=== PATIENT | male | born 1950 | race Caucasian/White ===

== ENCOUNTER 2021-02-11 21:32 | Emergency (ER) | payer MEDICARE, OTHER, SELFPAY ==
[2021-02-11 21:39] VITALS: BP 163/85; PULSE 72; RESP 18; TEMP 36.4; O2SAT 97; BMI 26.6
[2021-02-11 21:52] VITALS: BP 129/91; PULSE 69; RESP 17; O2SAT 98
--- NOTE | 2021-02-11 21:56 | CTR_ITS ---
PROCEDURE INFORMATION: Exam: CT Head Without Contrast Exam date and time: 02/11/2021 9:56 PM Age: 71 years old Clinical indication: Pain; Weakness, facial; Headache; Patient HX: BULLOCK with RT facial droop; Additional info: Rule out brain injuries TECHNIQUE: Imaging protocol: Computed tomography of the head without contrast. Radiation optimization: All CT scans at this facility use at least one of these dose optimization techniques: automated exposure control; mA and/or kV adjustment per patient size (includes targeted exams where dose is matched to clinical indication); or iterative reconstruction. COMPARISON: CT head wo con* [id number] 11/22/2016 12:03 PM RADIATION DOSE METRICS: Total DLP (mGy-cm): 787.26 FINDINGS: Brain: The brain is unremarkable. There is no mass effect or significant white matter disease. There is no acute intracranial hemorrhage. Cerebral ventricles: There is no significant ventricular dilation. The basal cisterns are unremarkable. Paranasal sinuses: The paranasal sinuses are clear. Mastoid air cells: The mastoid air cells are clear. Bones/joints: The calvarium is intact. Soft tissues: The visible extracranial soft tissues are unremarkable. CT/CT head wo con* [id number] IMPRESSION: No acute intracranial abnormality. Radiation Dose CTDIVOL = (mGy): DLP = 787.26 (mGy-cm)
[2021-02-11 22:09] LABS: Basophils % 0.3 %; Eosinophils # 0.1 10^3/uL (0.0-0.8); Eosinophils % 0.8 %; Hematocrit 46.6 % (42.0-52.0); Hemoglobin 15.5 g/dL (11.7-16.6); Lymphocytes # 1.1 10^3/uL (0.8-4.8); Lymphocytes % 12.2 %; Mean Corpuscular HGB Conc 33.3 g/dL (30.0-36.0); Mean Corpuscular Hemoglobin 28.9 pg (28.0-34.0); Mean Corpuscular Volume 86.9 fL (80-94); Mean Platelet Volume 10.2 fL (7.4-10.4); Monocytes # 0.6 10^3/uL (0.2-0.9); Monocytes % 6.3 %; Neutrophils # 7.21 10^3/uL (1.8-7.7); Neutrophils % 80.2 %; Nucleated Red Blood Cells % 0 %; Platelet Count 268 10^3/cmm (130-400); Red Blood Count 5.36 10^6/uL (4.1-5.3); Red Cell Distribution Width 12.9 % (12.1-15.1)
--- NOTE | 2021-02-11 22:11 | CTR_ITS ---
PROCEDURE INFORMATION: Exam: CT Angiography Head With Contrast, Arteriography Exam date and time: 02/11/2021 10:11 PM Age: 71 years old Clinical indication: Dizziness and giddiness; Patient HX: Right sided facial droop, dizzy, blurred vision. HX of sosa's palsy x 2 years ago. ; Additional info: Rule out dissection TECHNIQUE: Imaging protocol: Computed tomography angiography of the head with contrast. Exam focused on the arteries. 3D rendering (Not supervised by radiologist): MIP and/or 3D reconstructed images were created by the technologist. Radiation optimization: All CT scans at this facility use at least one of these dose optimization techniques: automated exposure control; mA and/or kV adjustment per patient size (includes targeted exams where dose is matched to clinical indication); or iterative reconstruction. Contrast material: OMNI 350; Contrast volume: 95 ml; Contrast route: INTRAVENOUS (IV); COMPARISON: CT head wo con* [id number] 02/11/2021 10:07 PM RADIATION DOSE METRICS: Total DLP (mGy-cm): 2237.65 FINDINGS: ANTERIOR CIRCULATION: Right internal carotid artery: Unremarkable. Intracranial segment is patent with no significant stenosis. No aneurysm. Right middle cerebral artery: Unremarkable. No occlusion or significant stenosis. No aneurysm. Right anterior cerebral artery: Unremarkable. No occlusion or significant stenosis. No aneurysm. Left internal carotid artery: Unremarkable. Intracranial segment is patent with no significant stenosis. No aneurysm. Left middle cerebral artery: Unremarkable. No occlusion or significant stenosis. No aneurysm. Left anterior cerebral artery: Unremarkable. No occlusion or significant stenosis. No aneurysm. POSTERIOR CIRCULATION: Right vertebral artery: Unremarkable. No occlusion or significant stenosis. No aneurysm. Left vertebral artery: Unremarkable. No occlusion or significant stenosis. No aneurysm. Basilar artery: Unremarkable. No occlusion or significant stenosis. No aneurysm. Right posterior cerebral artery: Unremarkable. No occlusion or significant stenosis. No aneurysm. Left posterior cerebral artery: Unremarkable. No occlusion or significant stenosis. No aneurysm. Brain: No definite mass, mass effect, or midline shift. Cerebral ventricles: No ventriculomegaly. Bones/joints: Unremarkable. No acute fracture. Soft tissues: Unremarkable. IMPRESSION: No arterial stenosis, occlusion or aneurysm. PROCEDURE INFORMATION: Exam: CT Angiography Neck With Contrast Exam date and time: 02/11/2021 10:11 PM Age: 71 years old Clinical indication: Dizziness and giddiness; Patient HX: Right sided facial droop, dizzy, blurred vision. HX of sosa's palsy x 2 years ago. ; Additional info: Rule out dissection TECHNIQUE: Imaging protocol: Computed tomography angiography of the neck with contrast. 3D rendering (Not supervised by radiologist): MIP and/or 3D reconstructed images were created by the technologist. Radiation optimization: All CT scans at this facility use at least one of these dose optimization techniques: automated exposure control; mA and/or kV adjustment per patient size (includes targeted exams where dose is matched to clinical indication); or iterative reconstruction. Contrast material: OMNI 350; Contrast volume: 95 ml; Contrast route: INTRAVENOUS (IV); COMPARISON: CT head wo con* [id number] 02/11/2021 10:07 PM RADIATION DOSE METRICS: Total DLP (mGy-cm): 2237.63 FINDINGS: Right common carotid artery: No stenosis. No dissection or occlusion. Right internal carotid artery: There is mild atherosclerotic disease at the origin of the right internal carotid artery with less than 50% stenosis. Right external carotid artery: No occlusion or stenosis of the origin. Left common carotid artery: No stenosis. No dissection or occlusion. Left internal carotid artery: No stenosis of the extracranial segment. No dissection or occlusion. Left external carotid artery: No occlusion or stenosis of the origin. Right vertebral artery: No stenosis. No dissection or occlusion. Left vertebral artery: No stenosis. No dissection or occlusion. Soft tissues: Soft tissues in the neck and thoracic inlet are unremarkable. Bones/joints: No acute fracture. Multilevel disc findings: there is mild degenerative disc disease in the cervical spine. CT/CT angio headneck* [id number] IMPRESSION: No significant arterial stenosis. No occlusion or aneurysm. REFERENCES: NASCET CRITERIA. The degree of internal carotid artery stenosis is based on NASCET criteria. Normal is no stenosis. Mild is less than 50% stenosis. Moderate is 50-69% stenosis. Severe is 70% to 99% stenosis. Total occlusion is no detectable patent lumen. Radiation Dose CTDIVOL = (mGy): DLP = 2237.65~2237.63 (mGy-cm)
[2021-02-11 22:25] LABS: Anion Gap 13.8 (5-19); Blood Urea Nitrogen 20 mg/dL (8-23); Calcium 8.7 mg/dL (8.5-10.5); Carbon Dioxide 25 mmol/L (22-29); Chloride 105 mmol/L (98-107); Glucose 102 mg/dL (65-115); Osmolality Calculated 293 mOsm/kg (285-295); Potassium 3.8 mmol/L (3.5-5.1); Sodium 140 mmol/L (136-145)
[2021-02-11] MEDS: iohexol 350 mg/mL 100 mL Btl IV (22:46)
[2021-02-11 22:59] VITALS: BP 138/85; PULSE 64; RESP 17; O2SAT 95
--- NOTE | 2021-02-11 23:27 | ED_ITS ---
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 Patient states that since then, he has been unable to puff his R cheek. Patient is able to raise his R eyebrow. Has been not at any point time regain function of the R lower face. In addition, shortly after getting up patient complains of left-sided neck pain. Denies injuries. in addition, patient denies any other focal deficits, diplopia, double vision, vertigo, dysarthria, blindness, or other neurological issues. Onset: 12 hrs interiano Duration:12 hrs Location:home Severity:moderate Review of Systems Narrative: Constitutional: No fever, no chills. HEENT: No vision changes CV: No chest pain, no palpitations PULM: no cough, no dyspnea. GI: No abdominal pain, no N/V/D. : No dysuria MSKEL: No muscle pain SKIN: No new rashes, no lesions. NEURO: No headache, no focal weakness. HEME: No visible bruises PSYCH: Normal mood Physical Exam Narrative: EXAM NARRATIVE: Head: Atraumatic Eyes: PERRL, conjunctiva without injection ENT: Mucous membrane moist NECK: Supple, ROM intact LUNGS: LCTAB, no crackles/rhonchi CV: RRR ABDOMEN: Soft, nontender in all quadrants EXTREMITY: Normal ROM SKIN: No rash or erythema NEURO: Awake and alert. No focal motor deficits. Mental status: A/Ox3 +R sided facial droop, rest of cranial nerve grossly intact Sensation intact to sharp/dull differentiation in all extremities. Motor: Normal tone and bulk. No abnormal movements appreciated. No pronator drift. Strength tested and 5/5 in bilateral wrist flexion/extension, elbow flexion/extension, shoulder abduction, straight leg raise, knee flexion/extension, ankle dorsiflexion/plantarflexion. Patient ambulates with a steady gait. Coordination: Finger to nose and heel to guido testing intact bilaterally. PSYCH: Normal mood and affect Course Vital Signs: Vital signs: Vital Signs Temperature 97.6 F 02/11/21 21:39 Pulse Rate 73 02/11/21 23:57 Respiratory Rate 17 02/11/21 23:57 Blood Pressure 149/77 02/11/21 23:57 Pulse Oximetry 97 02/11/21 23:57 MDM - General Adult MDM Narrative: Medical decision making narrative: Patient is a 71-year-old male with a history of Boland's palsy presenting to the emergency room with complaints of right-sided facial droop. Onset of symptoms upon awake this morning, patient is outside of TPA window. Patient has an NIHSS score of 1 today for the right-sided facial droop. I have discussed findings with Dr. Pike who recommended a CT brain as well as CTA head and neck for evaluation of vascular pathologies in light of L sided neck pain including carotid dissection. Imaging studies today are all negative. I have communicated finding with Dr. Pike who recommended the patient to be seen tomorrow in her clinic for further evlauation. I discussed the plan with the patient and the follow-up with Dr. Pike in the a.m. for evaluation of symptoms. Patient agrees. Disposition: Discharge. Patient is given strict return precaution for any other focal neurological deficits, or any other new or concerning complaints. Lab Data: Labs: Lab Results 02/11/21 02/11/21 Range/Units 22:00 22:00 WBC 9.0 (4.0-10.0) 10^3/ uL RBC 5.36 H (4.1-5.3) 10^6/u L Hgb 15.5 (11.7-16.6) g/dL Hct 46.6 (42.0-52.0) % MCV 86.9 (80-94) fL MCH 28.9 (28.0-34.0) pg MCHC 33.3 (30.0-36.0) g/dL RDW 12.9 (12.1-15.1) % Plt Count 268 (130-400) 10^3/c mm MPV 10.2 (7.4-10.4) fL Neut % (Auto) 80.2 % Lymph % (Auto) 12.2 % Webster % (Auto) 6.3 % Eos % (Auto) 0.8 % Baso % (Auto) 0.3 % Neut # (Auto) 7.21 (1.8-7.7) 10^3/u L Lymph # (Auto) 1.1 (0.8-4.8) 10^3/u L Webster # (Auto) 0.6 (0.2-0.9) 10^3/u L Eos # (Auto) 0.1 (0.0-0.8) 10^3/u L Baso # (Auto) 0.0 (0.0-0.1) 10^3/u L Nucleated RBC % (a uto) 0 % Nucleated RBCs # 0.0 /100WBC Sodium 140 (136-145) mmol/L Potassium 3.8 (3.5-5.1) mmol/L Chloride 105 (98-107) mmol/L Carbon Dioxide 25 (22-29) mmol/L Anion Gap 13.8 (5-19) BUN 20 (8-23) mg/dL Creatinine 1.0 (0.7-1.2) mg/dL GFR Calculation Not Reportable Glucose 102 (65-115) mg/dL Calculated Osmolal ity 293 (285-295) mOsm/k g Calcium 8.7 (8.5-10.5) mg/dL Imaging Data^: Other Imaging: Radiologist's impression: [facility] [id number] Scan ReportSigned Patient: Jaylon Quesada #: [id number]: 1950Acct#:[id number]/Sex: 71 / MADM Date: 02/11/21Loc: ERRoom/Bed:Attending Dr: Ordering Provider/Ordering MD: Wade Saeed MD Date of Service: 02/11/21 Procedure(s): CT angio headneck* [id number] Accession Number(s): [id number] Report Number: [id number] PROCEDURE INFORMATION: Exam: CT Angiography Head With Contrast, Arteriography Exam date and time: 02/11/2021 10:11 PM Age: 71 years old Clinical indication: Dizziness and giddiness; Patient HX: Right sided facial droop, dizzy, blurred vision. HX of boland's palsy x 2 years ago. ; Additional info: Rule out dissection TECHNIQUE: Imaging protocol: Computed tomography angiography of the head with contrast. Exam focused on the arteries. 3D rendering (Not supervised by radiologist): MIP and/or 3D reconstructed images were created by the technologist. Radiation optimization: All CT scans at this facility use at least one of these dose optimization techniques: automated exposure control; mA and/or kV adjustment per patient size (includes targeted exams where dose is matched to clinical indication); or iterative reconstruction. Contrast material: OMNI 350; Contrast volume: 95 ml; Contrast route: INTRAVENOUS (IV); COMPARISON: CT head wo con* [id number] 02/11/2021 10:07 PM RADIATION DOSE METRICS: Total DLP (mGy-cm): 2237.65 FINDINGS: ANTERIOR CIRCULATION: Right internal carotid artery: Unremarkable. Intracranial segment is patent with no significant stenosis. No aneurysm. Right middle cerebral artery: Unremarkable. No occlusion or significant stenosis. No aneurysm. Right anterior cerebral artery: Unremarkable. No occlusion or significant stenosis. No aneurysm. Left internal carotid artery: Unremarkable. Intracranial segment is patent with no significant stenosis. No aneurysm. Left middle cerebral artery: Unremarkable. No occlusion or significant stenosis. No aneurysm. Left anterior cerebral artery: Unremarkable. No occlusion or significant stenosis. No aneurysm. POSTERIOR CIRCULATION: Right vertebral artery: Unremarkable. No occlusion or significant stenosis. No aneurysm. Left vertebral artery: Unremarkable. No occlusion or significant stenosis. No aneurysm. Basilar artery: Unremarkable. No occlusion or significant stenosis. No aneurysm. Right posterior cerebral artery: Unremarkable. No occlusion or significant stenosis. No aneurysm. Left posterior cerebral artery: Unremarkable. No occlusion or significant stenosis. No aneurysm. Brain: No definite mass, mass effect, or midline shift. Cerebral ventricles: No ventriculomegaly. Bones/joints: Unremarkable. No acute fracture. Soft tissues: Unremarkable. IMPRESSION: No arterial stenosis, occlusion or aneurysm. PROCEDURE INFORMATION: Exam: CT Angiography Neck With Contrast Exam date and time: 02/11/2021 10:11 PM Age: 71 years old Clinical indication: Dizziness and giddiness; Patient HX: Right sided facial droop, dizzy, blurred vision. HX of boland's palsy x 2 years ago. ; Additional info: Rule out dissection TECHNIQUE: Imaging protocol: Computed tomography angiography of the neck with contrast. 3D rendering (Not supervised by radiologist): MIP and/or 3D reconstructed images were created by the technologist. Radiation optimization: All CT scans at this facility use at least one of these dose optimization techniques: automated exposure control; mA and/or kV adjustment per patient size (includes targeted exams where dose is matched to clinical indication); or iterative reconstruction. Contrast material: OMNI 350; Contrast volume: 95 ml; Contrast route: INTRAVENOUS (IV); COMPARISON: CT head wo con* [id number] 02/11/2021 10:07 PM RADIATION DOSE METRICS: Total DLP (mGy-cm): 2237.63 FINDINGS: Right common carotid artery: No stenosis. No dissection or occlusion. Right internal carotid artery: There is mild atherosclerotic disease at the origin of the right internal carotid artery with less than 50% stenosis. Right external carotid artery: No occlusion or stenosis of the origin. Left common carotid artery: No stenosis. No dissection or occlusion. Left internal carotid artery: No stenosis of the extracranial segment. No dissection or occlusion. Left external carotid artery: No occlusion or stenosis of the origin. Right vertebral artery: No stenosis. No dissection or occlusion. Left vertebral artery: No stenosis. No dissection or occlusion. Soft tissues: Soft tissues in the neck and thoracic inlet are unremarkable. Bones/joints: No acute fracture. Multilevel disc findings: there is mild degenerative disc disease in the cervical spine. CT/CT angio headneck* [id number] IMPRESSION: No significant arterial stenosis. No occlusion or aneurysm. REFERENCES: NASCET CRITERIA. The degree of internal carotid artery stenosis is based on NASCET criteria. Normal is no stenosis. Mild is less than 50% stenosis. Moderate is 50-69% stenosis. Severe is 70% to 99% stenosis. Total occlusion is no detectable patent lumen. Radiation Dose CTDIVOL = (mGy): DLP = 2237.65~2237.63 (mGy-cm) Dictated By:Pedro Luis Valdes MDSigned By:Pedro Luis Valdes MDSigned Date/T [place]:02/11/214DD/ [address] [facility] [place], [place] [address]SR Scan ReportSigned Patient: Jaylon Quesada RUnit #: [id number]: 1950Acct#:[id number]/Sex: 71 / MADM Date: 02/11/21Loc: ERRoom/Bed:Attending Dr: Ordering Provider/Ordering MD: Wade Saeed MD Date of Service: 02/11/21 Procedure(s): CT head wo con* [id number] Accession Number(s): [id number] Report Number: [id number] PROCEDURE INFORMATION: Exam: CT Head Without Contrast Exam date and time: 02/11/2021 9:56 PM Age: 71 years old Clinical indication: Pain; Weakness, facial; Headache; Patient HX: BULLOCK with RT facial droop; Additional info: Rule out brain injuries TECHNIQUE: Imaging protocol: Computed tomography of the head without contrast. Radiation optimization: All CT scans at this facility use at least one of these dose optimization techniques: automated exposure control; mA and/or kV adjustment per patient size (includes targeted exams where dose is matched to clinical indication); or iterative reconstruction. COMPARISON: CT head wo con* [id number] 11/22/2016 12:03 PM RADIATION DOSE METRICS: Total DLP (mGy-cm): 787.26 FINDINGS: Brain: The brain is unremarkable. There is no mass effect or significant white matter disease. There is no acute intracranial hemorrhage. Cerebral ventricles: There is no significant ventricular dilation. The basal cisterns are unremarkable. Paranasal sinuses: The paranasal sinuses are clear. Mastoid air cells: The mastoid air cells are clear. Bones/joints: The calvarium is intact. Soft tissues: The visible extracranial soft tissues are unremarkable. CT/CT head wo con* [id number] IMPRESSION: No acute intracranial abnormality. Radiation Dose CTDIVOL = (mGy): DLP = 787.26 (mGy-cm) Dictated By:Pedro Luis Valdes MDSigned By:Pedro Luis Valdesigned Date/Time:02/11/212235DD/ 33 Discharge Plan Discharge Patient Disposition: Home Clinical Impression: Facial droop Condition: Stable Discharge Orders: Discharge ED (Routine); Ordered 02/11/21 Ordered By: Wade Saeed Referrals: Melissa Pike MD [Physician] - Wade Saeed MD [Emergency Provider] - Tate Mauro DO [Primary Care Provider] - Discharge Diet: Regular Activity Restrictions/Additional Instructions: Please follow up with Dr. Pike in the AM for reevaluation of your symptoms. Coding Level of Care Code ED [employer] for Tanvir Meraz
[2021-02-11 23:57] VITALS: BP 149/77; PULSE 73; RESP 17; O2SAT 97
== END 2021-02-12 00:07 | disposition home or self-care (01) ==
PROVIDERS: Emergency Provider Emergency Medicine; PCP Internal Medicine
DX: R29.810 Facial weakness (principal)
CPT/HCPCS: 70450; 70496; 70498; 80048; 85025; 99283; Q9967

== ENCOUNTER → 2021-02-16 10:21 | Outpatient (BNVA) | payer MEDICARE, OTHER, SELFPAY | PROVIDERS: PCP Internal Medicine; Visit Provider Specialist | DX: G51.0 Bell's palsy (principal); R27.0 Ataxia, unspecified | CPT/HCPCS: 99205 ==

== ENCOUNTER 2021-02-18 14:02 | Outpatient (CLI) | payer MEDICARE, OTHER, SELFPAY ==
--- NOTE | 2021-02-18 14:30 | MR_ITS ---
WS: [id number] MRI BRAIN WITH AND WITHOUT CONTRAST HISTORY: R29.810 - Facial weakness COMPARISON: CT head 02/11/2021. TECHNIQUE: Multiplanar imaging performed through the brain with MultiHance 18 ml's IV. No acute infarcts are seen. Wilburn-white matter differentiation is well preserved. There are very few n onspecific T2 and FLAIR signal hyperintensities in the subcortical white matter and also along the po sterior corpus callosum. Very nonspecific these areas do not enhance. Diffusion-weighted imaging is n ormal. No susceptibility artifacts or prior lacunar infarcts. Ventricles and extra-axial spaces are normal. Clivus and pituitary gland are normal. Visualized posterior fossa and brainstem are also normal. Postcontrast images are negative for masses or vascular malformations. There is enhancement within th e LEFT internal auditory canal involving the 7th cranial nerve. There is enhancement involving the fu ndal top, labyrinthine segment and the tympanic portion of the facial nerve. Dural venous sinuses are normal. Paranasal sinuses: Well aerated with no significant disease. Mastoid air cells: Normal. Calvarium and scalp: Normal. MR/MR head wo/w con [id number] IMPRESSION: 1. No acute infarct. 2. Abnormal enhancement involving the LEFT facial nerve most consistent with B ell's palsy. 3. Mild chronic microvascular ischemic disease. No masses.
[2021-02-18] MEDS: gadobenate dimeglumine 20 mL vial IV (14:59)
== END 2021-02-18 14:03 | disposition home or self-care (01) ==
LOC: RADSHAW 14:07
PROVIDERS: PCP Internal Medicine; Visit Provider Specialist
DX: R29.810 Facial weakness (principal); I67.82 Cerebral ischemia
CPT/HCPCS: 70553; A9577

== ENCOUNTER → 2022-09-13 12:13 | Outpatient (BNVA) | payer MEDICARE, OTHER, SELFPAY | PROVIDERS: PCP Internal Medicine; Visit Provider Specialist | DX: G24.5 Blepharospasm (principal); G51.32 Clonic hemifacial spasm, left; H02.402 Unspecified ptosis of left eyelid | CPT/HCPCS: 99213 ==

== ENCOUNTER 2022-12-27 09:29 | Outpatient (CLI) | payer MEDICARE, OTHER, SELFPAY ==
--- NOTE | 2022-12-27 09:39 | XR_ITS ---
WS: [id number] Exam: XR lumbar spine f/e only [id number] Date/Time of Exam: 12/27/2022 9:41 AM Reason For Exam: VERTEBROGENIC LOW BACK PAIN No acute fracture or dislocation. Degenerative vacuum disks at L2-3, L4-5 and L5-S1. Mild spondylosis at all levels. No significant flexion or extension instability. Mild degenerative retrolisthesis of L2 on L3 of about 3 mm. XR/XR lumbar spine f/e only [id number] IMPRESSION: 1. No significant flexion or extension instability. Mild degenerative retrolist hesis of L2 on L3 of about 3 mm. 2. Degenerative disc changes as detailed above.
== END 2022-12-27 09:30 | disposition home or self-care (01) ==
PROVIDERS: PCP Internal Medicine; Visit Provider Nurse Practitioner
DX: M54.51 Vertebrogenic low back pain (principal); M43.16 Spondylolisthesis, lumbar region; M51.37 Other intervertebral disc degeneration, lumbosacral region
CPT/HCPCS: 72120

== ENCOUNTER → 2023-11-30 10:51 | Outpatient (BNVA) | payer MEDICARE, SELFPAY | PROVIDERS: PCP Internal Medicine; Referring Provider Internal Medicine; Visit Provider Surgery | DX: K64.9 Unspecified hemorrhoids (principal) | CPT/HCPCS: 99203 ==